=== PATIENT | female | born 1995 | race Two or more races ===

== ENCOUNTER 2017-11-08 03:45 | Emergency (ER) | payer OTHER ==
[~2017-11-08] VITALS: Ht 157.5 cm; Wt 47.6 kg
[2017-11-08] MEDS ORDERED: SPIR50TA3 PO (03:59)
--- NOTE | 2017-11-08 04:11 | NUR ---
Patient discharged to home in stable conditon. Written and verbal after care instructions given. Patient verbalizes understanding of instructions.
--- NOTE | 2017-11-08 04:13 | NUR ---
Patient discharged to home in stable conditon. Written and verbal after care instructions given. Patient verbalizes understanding of instructions.pt with mother
[2017-11-08] MEDS ORDERED: IBUPROFEN 600 MG TABLET PO ONE (04:15)
[2017-11-08] MEDS ORDERED: IBUPROFEN 600 MG TABLET ONE (04:26)
== END 2017-11-08 04:14 | disposition home or self-care (01) ==
LOC: ER 03:52
DX: M94.0 Chondrocostal junction syndrome [Tietze] (principal)
CPT/HCPCS: 93005; A4663